=== PATIENT | female | born 1960 | race Caucasian/White ===

== ENCOUNTER 2018-03-03 11:30 | Emergency (ER) | payer BC ==
[2018-03-03] MEDS ORDERED: Promethazine HCl 25 MG/ML VIAL ONE (12:10)
[2018-03-03] MEDS ORDERED: Mag-Al Plus 1200 MG/1200 MG/120 MG/30 ML UDCUP ONE (12:11)
[2018-03-03] MEDS ORDERED: Lidocaine Viscous Sol 2% 15 ml UD Cup ONE (12:11)
[2018-03-03 12:16] LABS: #Eosinphils 0.1 thou/uL (0.0-0.7); #Lymphocytes 0.5 thou/uL (1.20-3.40); #Monocytes 0.3 thou/uL (0.11-0.59); #Neutrophils 9.5 thou/uL (1.40-6.50); %Basophils 0.4 % (0.0-1.0); %Lymphocytes 4.5 % (21.0-51.0); %Monocytes 2.9 % (0.0-10.0); %Neutrophils 91.3 % (42.0-75.0); Hemoglobin 15.4 g/dL (12.0-16.0); Mean Corpuscular HGB CONC 35.4 g/dL (32.0-36.0); Mean Corpuscular Hemoglobin 28.6 pg (27.0-31.0); Mean Platelet Volume 7.2 fL (7.4-10.4); Platelet Count 250 thou/uL (130-400); RBC Distribution Width 12.2 % (11.5-14.5); Red Blood Cell (RBC) Count 5.38 mill/uL (4.20-5.40); White Blood Cell (WBC) Count 10.4 thou/uL (4.8-10.8)
[2018-03-03 12:23] LABS: Clarity Clear (Clear)
[2018-03-03 12:24] LABS: Bilirubin Negative (Negative); Blood, Urine Negative (Negative); Glucose, Urine (Dipstick) Negative (Negative); Leukocyte Negative (Negative); Nitrite Negative (Negative); Protein, Urine (Dipstick) 30 mg/dL (Neg-Trace); Urobilinogen 0.2 mg/dL (0.2-1.0)
[2018-03-03 12:28] LABS: Bacteria/HPF 1+ HPF (None Seen); RBC/HPF 0-3 HPF (0-3); Squamous Epithelial 0-3 HPF (0-3); WBC/HPF 0-3 HPF (0-3)
[2018-03-03 12:33] LABS: ALT (SGPT) 17 U/L (8-55); AST (SGOT) 17 U/L (5-34); Albumin 4.2 g/dL (3.5-5.0); Alkaline Phosphatase 80 U/L (40-150); Anion Gap 15 mmol/L (10-20); BUN (Urea Nitrogen) 18 mg/dL (9.8-20.1); Bilirubin, Total 0.6 mg/dL (0.2-1.2); Calc. Creatinine Clearance 0 mL/min (70-130); Calcium 9.3 mg/dL (7.8-10.44); Carbon Dioxide 24 mmol/L (22-29); Chloride 107 mmol/L (98-107); Estimated GFR-MDRD 77; Globulin 3.2 g/dL (2.4-3.5); Glucose 112 mg/dL (70-105); Lipase 22 U/L (8-78); Potassium 4.3 mmol/L (3.5-5.1); Protein, Total 7.4 g/dL (6.0-8.3); Sodium 142 mmol/L (136-145)
[2018-03-03 12:35] LABS: CKMB 1.2 ng/mL (0-6.6); Troponin I Less than 0.010 ng/mL (< 0.028)
[2018-03-03] MEDS ORDERED: Acetaminophen/Codeine 30-300mg Tablet ONE (13:33)
[2018-03-03] MEDS ORDERED: Dicyclomine 20 MG TAB ONE (13:34)
--- NOTE | 2018-03-03 23:12 | CT ---
CT ABDOMEN AND PELVIS WITH CONTRAST: Date: 03-03-18 Technique: Spiral CT of the abdomen and pelvis was performed after injection of IV contrast. Oral con trast was withheld by request. FINDINGS: The lung bases are clear. The liver is normal in size. It has a few tiny hypo lucencies in it, most a t or under 1 cm in size. Statistically, these are most likely small cysts. The spleen, pancreas, gall bladder, adrenal glands, kidneys, and abdominal aorta showed no acute findings. Fluid filled loops of small and large bowel are noted. None of the loops are dilated and there is no gross bowel wall thickening or inflammatory change around them. The appendix is identified and appear s normal. On some slices there is a very faint increase in density near the root of the mesentery. So metimes this could signify mesenteric panniculitis. No free air or free fluid was seen. CT of the pelvis shows no pelvic masses. The adnexal regions were clear. There may be a small amount of free fluid but it is not excessive. There are no inflammatory changes. IMPRESSION: 1. Fluid filled nondilated loops of large and small bowel. Consider enteritis as a possibility. 2. Appendix appears normal. 3. 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 POS: HOME
== END 2018-03-03 13:48 | disposition home or self-care (01) ==
LOC: BURERS 11:30
DX: K52.9 Noninfective gastroenteritis and colitis, unspecified (principal); Z79.82 Long term (current) use of aspirin
CPT/HCPCS: 74177; 80053; 81003; 81015; 82553; 83690; 84484; 85025; 93005; 96361; 96365; J2550

== ENCOUNTER 2025-04-20 02:47 | Emergency (ER) | payer BC | END 2025-04-20 03:42 | disposition home or self-care (01) | LOC: BURERS 02:47 | DX: R20.2 Paresthesia of skin (principal); T45.525A Adverse effect of antithrombotic drugs, initial encounter; T39.015A Adverse effect of aspirin, initial encounter; T46.6X5A Adverse effect of antihyperlipidemic and antiarteriosclerotic drugs, initial encounter; I25.10 Atherosclerotic heart disease of native coronary artery without angina pectoris; Z95.9 Presence of cardiac and vascular implant and graft, unspecified | CPT/HCPCS: 99283 ==

== ENCOUNTER 2025-05-28 23:29 | Emergency (ER) | payer BC ==
[2025-05-29 00:10] LABS: INR-International Normal Ratio 1.1; PTT 34.1 sec (22.9-36.1); Prothrombin Time 14.3 sec (12.0-14.7)
[2025-05-29 00:11] LABS: #Basophils 0.1 thou/uL (0.0-0.2); #Eosinophils 0.2 thou/uL (0.0-0.7); #Lymphocytes 2.1 thou/uL (1.20-3.40); #Monocytes 0.7 thou/uL (0.11-0.59); #Neutrophils 4.5 thou/uL (1.40-6.50); %Basophils 1.0 % (0.0-1.0); %Eosinophils 2.5 % (0.0-10.0); %Lymphocytes 27.9 % (21.0-51.0); %Monocytes 8.7 % (0.0-10.0); %Neutrophils 60.0 % (42.0-75.0); Hematocrit 37.9 % (36.0-47.0); Hemoglobin 13.7 g/dL (12.0-16.0); Mean Corpuscular Hemoglobin 29.8 pg (27.0-31.0); Mean Corpuscular Volume 82.6 fl (78.0-98.0); Platelet Count 268 10x3/uL (130-400); Red Blood Cell (RBC) Count 4.59 mill/uL (4.20-5.40); White Blood Cell (WBC) Count 7.5 10x3/uL (4.8-10.8)
[2025-05-29 00:20] LABS: Glucose, Urine (Dipstick) Negative (Negative); Leukocyte Negative (Negative); Protein, Urine (Dipstick) Negative (Neg-Trace); Specific Gravity, Urine Greater/Equal 1.030 (1.005-1.030)
[2025-05-29 00:23] LABS: Bacteria/HPF Rare-Few HPF (None Seen); CAUTI Indications for Culture Dysuria,urgency,freq; RBC/HPF None Seen HPF (0-3); WBC/HPF 0-3 HPF (0-3)
[2025-05-29 00:24] LABS: Urine Culture Reflex No No
[2025-05-29 00:30] LABS: ALT (SGPT) 19 U/L (Less than 34); AST (SGOT) 18 U/L (11-34); Albumin 3.8 g/dL (3.1-4.5); Alkaline Phosphatase 82 U/L (40-110); Anion Gap 14 mmol/L (10-20); BUN (Urea Nitrogen) 18 mg/dL (9.8-20.1); Bilirubin, Total 0.2 mg/dL (0.3-1.2); Calc. Creatinine Clearance 0 mL/min (70-130); Calcium 9.0 mg/dL (7.8-10.44); Carbon Dioxide 23 mmol/L (23-31); Chloride 110 mmol/L (98-107); Globulin 2.9 g/dL (2.4-3.5); Glucose 120 mg/dL (80-115); Potassium 4.1 mmol/L (3.5-5.1); Sodium 143 mmol/L (136-145)
[2025-05-29 00:33] LABS: Troponin I Less than 0.010 ng/mL (< 0.028)
[2025-05-29] MEDS ORDERED: Aspirin 325 MG TAB ONE (00:35)
[2025-05-29 02:30] LABS: Troponin I Less than 0.010 ng/mL (< 0.028)
== END 2025-05-29 03:28 | disposition short-term general hospital (02) ==
LOC: BURERS 23:29
DX: R20.2 Paresthesia of skin (principal); R20.0 Anesthesia of skin
CPT/HCPCS: 36415; 70450; 71045; 80053; 81001; 83880; 84484; 85025; 85610; 85730; 93005; 94760

== ENCOUNTER 2025-08-18 12:43 | Emergency (ER) | payer BC ==
[2025-08-18 13:02] LABS: #Basophils 0.1 thou/uL (0.0-0.2); #Eosinophils 0.1 thou/uL (0.0-0.7); #Lymphocytes 1.7 thou/uL (1.20-3.40); #Monocytes 0.5 thou/uL (0.11-0.59); #Neutrophils 3.3 thou/uL (1.40-6.50); %Basophils 1.1 % (0.0-1.0); %Eosinophils 1.3 % (0.0-10.0); %Lymphocytes 30.3 % (21.0-51.0); %Monocytes 8.4 % (0.0-10.0); %Neutrophils 59.0 % (42.0-75.0); Hematocrit 48.6 % (36.0-47.0); Hemoglobin 15.0 g/dL (12.0-16.0); Mean Corpuscular Hemoglobin 28.4 pg (27.0-31.0); Mean Corpuscular Volume 92.4 fl (78.0-98.0); Platelet Count 274 10x3/uL (130-400); Red Blood Cell (RBC) Count 5.26 mill/uL (4.20-5.40); White Blood Cell (WBC) Count 5.6 10x3/uL (4.8-10.8)
[2025-08-18 13:20] LABS: ALT (SGPT) 28 U/L (Less than 34); AST (SGOT) 23 U/L (11-34); Albumin 4.1 g/dL (3.1-4.5); Alkaline Phosphatase 66 U/L (40-110); Anion Gap 16 mmol/L (10-20); BUN (Urea Nitrogen) 16 mg/dL (9.8-20.1); Bilirubin, Total 0.5 mg/dL (0.3-1.2); Calc. Creatinine Clearance 0 mL/min (70-130); Calcium 9.4 mg/dL (7.8-10.44); Carbon Dioxide 23 mmol/L (23-31); Chloride 106 mmol/L (98-107); Globulin 3.1 g/dL (2.4-3.5); Glucose 116 mg/dL (80-115); Potassium 3.8 mmol/L (3.5-5.1); Sodium 141 mmol/L (136-145)
[2025-08-18 13:21] LABS: Troponin I 0.021 ng/mL (< 0.028)
[2025-08-18] MEDS ORDERED: Aspirin 325 MG TAB ONE (14:04)
[2025-08-18] MEDS ORDERED: Aspirin Chewable 81 MG TAB ONE (14:06)
[2025-08-18] MEDS ORDERED: Nitroglycerin 2% Ointment 1 INCH/1 GM Packet ONE (14:13)
== END 2025-08-18 15:30 | disposition short-term general hospital (02) ==
LOC: BURERS 12:43
DX: R07.89 Other chest pain (principal); Z95.5 Presence of coronary angioplasty implant and graft
CPT/HCPCS: 71045; 80053; 83880; 84484; 85025; 93005